=== PATIENT | female | born 1960 | race Caucasian/White ===

== ENCOUNTER 2021-12-14 12:22 | Outpatient (CLI) | payer BC | END 2021-12-14 12:23 | disposition home or self-care (01) | LOC: CSHRAD 12:22 | PROVIDERS: ATTEND Family Medicine | DX: R05.9 Cough, unspecified (principal) | CPT/HCPCS: 71046 ==

== ENCOUNTER 2021-12-21 07:26 | Emergency (ER) | payer BC ==
[2021-12-21 08:22] LABS: #Neutrophils 14.8 10x3/uL (1.5-8.4); %Basophils 0.2 % (0.0-2.0); %Lymphocytes 6.8 % (18.0-47.0); %Monocytes 5.8 % (0.0-10.0); %Neutrophils 86.3 % (40.0-75.0); Hemoglobin 12.1 g/dL (12.0-15.5); Mean Corpuscular HGB CONC 32.9 g/dL (32.0-36.0); Mean Corpuscular Hemoglobin 27.8 pg (27.0-33.0); Mean Corpuscular Volume 84.4 fl (81.6-98.3); Mean Platelet Volume 10.1 fl (7.4-10.4); Platelet Count 569 10x3/uL (150-450); RBC Distribution Width 12.3 % (11.5-14.5); Red Blood Cell (RBC) Count 4.36 10x6/uL (3.90-5.03); White Blood Cell (WBC) Count 17.2 10x3/uL (3.5-10.5)
[2021-12-21 08:51] LABS: ALT (SGPT) 37 U/L (8-55); AST (SGOT) 35 U/L (5-34); Albumin 3.8 g/dL (3.4-4.8); Alkaline Phosphatase 107 U/L (40-110); Anion Gap 18 mmol/L (10-20); BUN (Urea Nitrogen) 15 mg/dL (9.8-20.1); Bilirubin, Total 0.2 mg/dL (0.2-1.2); Calc. Creatinine Clearance 0 mL/min (70-130); Calcium 9.4 mg/dL (7.8-10.44); Carbon Dioxide 23 mmol/L (23-31); Chloride 100 mmol/L (98-107); Globulin 3.3 g/dL (2.4-3.5); Glucose 134 mg/dL (80-115); Potassium 3.9 mmol/L (3.5-5.1); Protein, Total 7.1 g/dL (5.8-8.1); Sodium 137 mmol/L (136-145)
[2021-12-21 09:31] LABS: SARS-CoV-2 NAA Rapid Test Not Detected (NotDetected)
[2021-12-21] MEDS ORDERED: cefTRIAXone\\ROCEPHIN 2 GM VIAL ONE (10:10)
== END 2021-12-21 11:00 | disposition home or self-care (01) ==
LOC: CSHERS 07:26
DX: J18.9 Pneumonia, unspecified organism (principal); Z20.822 Contact with and (suspected) exposure to COVID-19
CPT/HCPCS: 71045; 80053; 84484; 85025; 87040; 93005; 96365; J0696

== ENCOUNTER 2023-04-12 18:37 | Emergency (ER) | payer BC ==
[2023-04-12 19:44] LABS: #Eosinphils 0.3 10x3/uL (0.0-0.5); #Neutrophils 11.5 10x3/uL (1.5-8.4); %Basophils 0.3 % (0.0-2.0); %Eosinophils 2.4 % (0.0-6.0); %Lymphocytes 8.2 % (18.0-47.0); %Monocytes 6.8 % (0.0-10.0); %Neutrophils 81.8 % (40.0-75.0); Hematocrit 37.2 % (34.9-44.5); Hemoglobin 11.9 g/dL (12.0-15.5); Mean Corpuscular Hemoglobin 28.3 pg (27.0-33.0); Mean Corpuscular Volume 88.6 fl (81.6-98.3); Mean Platelet Volume 10.1 fl (7.4-10.4); Platelet Count 565 10x3/uL (150-450); RBC Distribution Width 13.3 % (11.5-14.5); White Blood Cell (WBC) Count 14.1 10x3/uL (3.5-10.5)
[2023-04-12 20:02] LABS: ALT (SGPT) 9 U/L (8-55); AST (SGOT) 12 U/L (5-34); Albumin 3.6 g/dL (3.4-4.8); Alkaline Phosphatase 109 U/L (40-110); Anion Gap 15 mmol/L (10-20); BUN (Urea Nitrogen) 11 mg/dL (9.8-20.1); Bilirubin, Total 0.3 mg/dL (0.2-1.2); Calc. Creatinine Clearance 0 mL/min (70-130); Calcium 9.1 mg/dL (7.8-10.44); Carbon Dioxide 24 mmol/L (23-31); Chloride 104 mmol/L (98-107); Estimated GFR 82; Globulin 3.9 g/dL (2.4-3.5); Glucose 141 mg/dL (80-115); Potassium 3.4 mmol/L (3.5-5.1); Protein, Total 7.5 g/dL (5.8-8.1); Sodium 140 mmol/L (136-145)
[2023-04-12 20:08] LABS: Troponin I Less than 0.010 ng/mL (< 0.028)
[2023-04-12] MEDS ORDERED: Ondansetron PF 4 MG/2 ML Vial ONE (23:11)
[2023-04-12] MEDS ORDERED: Morphine 4 MG/ML VIAL ONE (23:11)
[2023-04-12] MEDS ORDERED: Acetaminophen 500 MG TAB ONE (23:28)
[2023-04-12] MEDS ORDERED: cefTRIAXone (ROCEPHIN) 1 GM VIAL ONE (23:34)
[2023-04-13] MEDS ORDERED: Azithromycin 500 MG VIAL ONE (00:30)
[2023-04-13] MEDS ORDERED: HYDROmorphone 0.5 MG/0.5 ML SYRINGE ONE (02:55)
== END 2023-04-13 03:21 | disposition short-term general hospital (02) ==
LOC: CSHERS 18:37
DX: R07.81 Pleurodynia (principal); R91.8 Other nonspecific abnormal finding of lung field; F17.290 Nicotine dependence, other tobacco product, uncomplicated
CPT/HCPCS: 36415; 71045; 71275; 80053; 83605; 83880; 84484; 85025; 87040; 93005; 96365; 96367; 96375; J0456; J0696; J1170; J2270; J2405

== ENCOUNTER 2024-04-14 13:06 | Emergency (ER) | payer MEDICARE, OTHER ==
[2024-04-14] MEDS ORDERED: Ondansetron PF 4 MG/2 ML Vial ONE (13:26)
[2024-04-14] MEDS ORDERED: Morphine 4 MG/ML VIAL ONE (13:26)
[2024-04-14 13:55] LABS: #Basophils 0.03 10x3/uL (0.0-0.2); #Eosinophils 0.16 10x3/uL (0.0-0.5); #Monocytes 0.98 10x3/uL (0.0-1.1); #Neutrophils 4.26 10x3/uL (1.5-8.4); %Basophils 0.4 % (0.0-2.0); %Eosinophils 2.1 % (0.0-6.0); %Lymphocytes 29.9 % (18.0-47.0); %Monocytes 12.6 % (0.0-10.0); %Neutrophils 54.6 % (40.0-75.0); Hematocrit 41.4 % (34.9-44.5); Hemoglobin 13.4 g/dL (12.0-15.5); Mean Corpuscular HGB CONC 32.4 g/dL (32.0-36.0); Mean Corpuscular Hemoglobin 30.5 pg (27.0-33.0); Mean Corpuscular Volume 94.1 fL (81.6-98.3); Mean Platelet Volume 9.5 fL (7.4-10.4); Platelet Count 395 10x3/uL (150-450); RBC Distribution Width 13.1 % (11.5-14.5); White Blood Cell (WBC) Count 7.8 10x3/uL (3.5-10.5)
[2024-04-14 14:07] LABS: ALT (SGPT) 19 U/L (8-55); AST (SGOT) 18 U/L (5-34); Albumin 3.1 g/dL (3.4-4.8); Alkaline Phosphatase 152 U/L (40-110); Anion Gap 15 mmol/L (10-20); BUN (Urea Nitrogen) 14 mg/dL (9.8-20.1); Bilirubin, Total 0.2 mg/dL (0.2-1.2); Calc. Creatinine Clearance 0 mL/min (70-130); Carbon Dioxide 22 mmol/L (23-31); Chloride 106 mmol/L (98-107); Estimated GFR 81; Globulin 3.7 g/dL (2.4-3.5); Glucose 94 mg/dL (80-115); Potassium 3.6 mmol/L (3.5-5.1); Protein, Total 6.8 g/dL (5.8-8.1); Sodium 139 mmol/L (136-145)
[2024-04-14] MEDS ORDERED: fentaNYL 50 mcg/mL 1 mL Vial ONE (15:01)
[2024-04-14] MEDS ORDERED: Iopamidol 300 61% 100 ML VIAL FS ONE (15:26)
[2024-04-14] MEDS ORDERED: Ketorolac Tromethamine 30 MG (1 mL) VIAL ONE (15:51)
== END 2024-04-14 17:28 | disposition home or self-care (01) ==
LOC: CSHERS 13:06
DX: S22.43XA Multiple fractures of ribs, bilateral, initial encounter for closed fracture (principal); F17.290 Nicotine dependence, other tobacco product, uncomplicated; V80.010A Animal-rider injured by fall from or being thrown from horse in noncollision accident, initial encounter; Y93.52 Activity, horseback riding; Z55.0 Illiteracy and low-level literacy
CPT/HCPCS: 70450; 71045; 71260; 72125; 74177; 80053; 85025; 93005; 96374; 96375; 99284; J1885; J2272; J2405; J3010; Q9967